=== PATIENT | male | born 2005 | race Asian ===

== ENCOUNTER 2023-07-06 23:45 | Emergency (ER) | payer BC ==
[2023-07-07 00:11] LABS: BILIRUBIN,URINE NEGATIVE (NEGATIVE); GLUCOSE, URINE (UA) NEGATIVE (NEGATIVE); KETONES,URINE (UA) NEGATIVE (NEGATIVE); LEUKOCYTE ESTERASE, URINE NEGATIVE (NEGATIVE); NITRITE,URINE NEGATIVE (NEGATIVE); OCCULT BLOOD,URINE NEGATIVE (NEGATIVE); PH,URINE 6.5 PH (5.0-7.5); PROTEIN,URINE TRACE mg/dL (NEGATIVE); UROBILINOGEN,URINE 0.2 (NORMAL) E.U./dL (NORMAL)
[2023-07-07 00:17] LABS: CLARITY,URINE CLEAR (CLEAR)
[2023-07-07] MEDS ORDERED: ONDANSETRON 4 MG/2 ML VIAL IVP STA (00:17)
[2023-07-07] MEDS ORDERED: FAMOTIDINE 20 MG/2 ML VIAL IVP STA (00:17)
[2023-07-07] MEDS ORDERED: SODIUM CHLORIDE 0.9% 1,000 ML IV STA (00:17)
[2023-07-07] MEDS ORDERED: KETOROLAC 30 MG/ML VIAL IVP STA (00:18)
[2023-07-07 00:28] LABS: BASOPHILS % (AUTO) 0.3 %; EOSINOPHILS # (AUTO) 0.1 10^3/uL (0.0-0.7); EOSINOPHILS % (AUTO) 0.6 %; HCT - HEMATOCRIT 48.3 % (42.0-52.0); HGB - HEMOGLOBIN 15.7 g/dL (14.0-18.0); LYMPHOCYTES # (AUTO) 1.3 10^3/uL (1.5-3.5); LYMPHOCYTES % (AUTO) 13.7 %; MEAN CORPUSCULAR HEMOGLOBIN 28.8 pg (27.0-31.0); MEAN CORPUSCULAR HGB CONC 32.5 g/dL (32.0-36.0); MEAN CORPUSCULAR VOLUME 88.6 fL (80.0-94.0); MEAN PLATELET VOLUME 9.5 fL (7.4-11.4); MONOCYTES # (AUTO) 0.3 10^3/uL (0.0-1.0); MONOCYTES % (AUTO) 3.1 %; NEUTROPHILS # (AUTO) 7.9 10^3/uL (1.5-6.6); PLT - PLATELET COUNT 300 10^3/uL (130-450); RED BLOOD COUNT 5.45 10^6/uL (4.70-6.10); RED CELL DISTRIBUTION WIDTH 12.4 % (12.0-15.0); WHITE BLOOD COUNT 9.6 x10^3/uL (4.8-10.8)
--- NOTE | 2023-07-07 00:38 | ED Physician Documentation ---
PD HPI ABD PAIN - Stated complaint Stated Complaint: NAUSEA/ABD PX - Chief complaint Chief Complaint: Abd Pain - History obtained from History obtained from: Patient - Additional information Additional information: Patient is a 17-year-old male presenting for evaluation of epigastric abdominal pain that is been present since this morning. Patient reports that it hurts more when he eats or drinks. He has had associated nausea and vomiting. Nothing makes it better. He denies history of prior abdominal surgeries. No drug or alcohol use. No fever. Had a cough last week but that resolved on . No chest pain or shortness of air. Denies dysuria. Had a bowel movement yesterday but today felt constipated and tried a suppository without any improvement. Review of Systems Constitutional: denies: Fever Cardiac: denies: Chest pain / pressure Respiratory: denies: Dyspnea GI: reports: Abdominal Pain, Nausea, Vomiting. denies: Diarrhea : denies: Dysuria Musculoskeletal: denies: Back pain Neurologic: denies: Headache PD PAST MEDICAL HISTORY - Present Medications Home Medications: Ambulatory Orders Medication Instructions Recorded Confirmed Ondansetron Odt [Zofran] 4 mg TL Q6H PRN #10 tablet 07/07/23 - Allergies Allergies/Adverse Reactions: Allergies Allergy/AdvReac Type Severity Reaction Status Date / Time No Known Drug Allergies Allergy Verified 07/06/23 23:57 PD ED PE NORMAL - General General: Alert and oriented X 3, No acute distress, Well developed/nourished - HEENT HEENT: Atraumatic, Moist mucous membranes, Pharynx benign - Neck Neck: Supple, no meningeal sign - Cardiac Cardiac: RRR, No murmur - Respiratory Respiratory: No respiratory distress, Clear bilaterally - Abdomen Abdomen: Normal bowel sounds, Soft, Non distended, Other (Mild epigastric and left upper quadrant tenderness to palpation, no tenderness to lower abdomen or RUQ) Results - Vitals Vitals: Vital Signs - 24 hr 07/06/23 07/07/23 07/07/23 23:49 00:48 02:00 Temperature 37.1 C Heart Rate 64 60 60 Respiratory 17 15 16 Rate Blood Pressure 133/81 H 136/66 H 121/67 O2 Saturation 100 99 98 07/07/23 02:22 Temperature Heart Rate 56 L Respiratory 16 Rate Blood Pressure O2 Saturation 98 Oxygen O2 Source Room air - Labs Labs: Laboratory Tests 07/06/23 07/07/23 07/07/23 23:59 00:12 00:12 WBC 9.6 RBC 5.45 Hgb 15.7 Hct 48.3 MCV 88.6 MCH 28.8 MCHC 32.5 RDW 12.4 Plt Count 300 MPV 9.5 Neut # (Auto) 7.9 H Lymph # (Auto) 1.3 L Clarke # (Auto) 0.3 Eos # (Auto) 0.1 Baso # (Auto) 0.0 Absolute Nucleated RBC 0.00 Nucleated RBC % 0.0 Sodium 137 Potassium 3.6 Chloride 102 Carbon Dioxide 25 Anion Gap 10.0 BUN 15 Creatinine 1.0 Estimated GFR (MDRD) 96 Glucose 110 H Calcium 9.6 Total Bilirubin 0.4 AST 15 ALT 25 Alkaline Phosphatase 68 Total Protein 7.4 Albumin 4.9 Globulin 2.5 Albumin/Globulin Ratio 2.0 Lipase 10 L Urine Color YELLOW Urine Clarity CLEAR Urine pH 6.5 Ur Specific Clay 1.025 Urine Protein TRACE Urine Glucose (UA) NEGATIVE Urine Ketones NEGATIVE Urine Occult Blood NEGATIVE Urine Nitrite NEGATIVE Urine Bilirubin NEGATIVE Urine Urobilinogen 0.2 (NORMAL) Ur Leukocyte Esterase NEGATIVE Ur Microscopic Review NOT INDICATED Urine Culture Comments NOT INDICATED PD Medical Decision Making - ED course Complexity details: reviewed results, re-evaluated patient, d/w patient, d/w family ED course: Patient is a 17-year-old male presenting for evaluation of epigastric abdominal pain with nausea and vomiting today. He has no lower abdominal tenderness on exam or right upper quadrant tenderness. Mild epigastric and left upper quadrant tenderness. Vital signs are stable. No chest pain or shortness of air. CBC and chemistries were obtained and reviewed and without significant findings. He is feeling better here with IV fluids, Zofran and a GI cocktail. At this time I do not feel that imaging would be particularly helpful given unremarkable labs and tenderness seems to be isolated to the epigastric region. No signs of cholecystitis or pancreatitis. Patient is tolerating p.o. here and was counseled on continued supportive care as well as concerning symptoms to return for. Departure - Departure Disposition: 01 Home, Self Care Clinical Impression: Epigastric abdominal pain, Nausea & vomiting Condition: Stable Instructions: ED Nausea Vomiting, ED Epigastric Pain [facility] Prescriptions: Ondansetron Odt [Zofran] 4 mg TL Q6H PRN #10 tablet PRN Reason: Nausea / Vomiting Comments: Your lab testing is reassuring without any significant findings and your symptoms have gotten better here with medications. I am sending a prescription for an antinausea medication to [facility] in [place]. Please start with a bland diet tomorrow and primarily focus on staying hydrated with fluids versus eating solid foods. If you have any worsening symptoms such as migration of your pain to the right lower part of your abdomen then please return to the emergency department. I would recommend follow-up with your primary care provider. Forms: PCP List Discharge Date/Time: 07/07/23 02:22
[2023-07-07 00:57] LABS: ALBUMIN 4.9 g/dL (3.2-5.5); BILIRUBIN,TOTAL 0.4 mg/dL (0.2-1.0); CALCIUM 9.6 mg/dL (8.5-10.3); POTASSIUM 3.6 mmol/L (3.5-4.5); TOTAL PROTEIN 7.4 g/dL (6.4-8.9)
[2023-07-07] MEDS ORDERED: LIDOCAINE VISCOUS 2% 15 ML UDC MM STA (01:27)
[2023-07-07] MEDS ORDERED: MAG HYDROX/AL HYDROX/SIMETH 30 ML UDC PO STA (01:27)
[2023-07-07] MEDS ORDERED: ONDANSETRON ODT 4 MG Prepack 2 TL PRN (02:06)
[2023-07-07 02:11] VITALS: BP 121/67; O2SAT 98
== END 2023-07-07 02:22 | disposition home or self-care (01) ==
LOC: ED 23:45
DX: R10.13 Epigastric pain (principal); R11.2 Nausea with vomiting, unspecified
CPT/HCPCS: 36415; 80053; 81001; 81003; 83690; 85025; 87086; 96374; 99283

== ENCOUNTER 2023-07-07 22:36 | Emergency (ER) | payer BC ==
[2023-07-07] MEDS ORDERED: MAG HYDROX/AL HYDROX/SIMETH 30 ML UDC PO STA (23:22)
[2023-07-07] MEDS ORDERED: diphenhydrAMINE ELIXIR 25 MG/10 ML UDC PO STA (23:23)
[2023-07-07] MEDS ORDERED: FAMOTIDINE 20 MG TABLET PO STA (23:23)
[2023-07-08 00:49] VITALS: BP 134/84; O2SAT 98
--- NOTE | 2023-07-08 01:02 | ED Physician Documentation ---
PD HPI ABD PAIN - Stated complaint Stated Complaint: ABD PX - Chief complaint Chief Complaint: Abd Pain - History obtained from History obtained from: Patient - Additional information Additional information: 17-year-old boy, previously healthy, presents with epigastric abdominal pain that occurs after eating for the past 2 days with associated constipation and bloating. Review of Systems Constitutional: denies: Fever, Chills Cardiac: denies: Chest pain / pressure Respiratory: denies: Dyspnea GI: reports: Nausea, Constipation. denies: Vomiting, Diarrhea, Bloody / black stool : denies: Dysuria, Frequency, Hesitancy, Hematuria Musculoskeletal: denies: Back pain PD PAST MEDICAL HISTORY - Past Medical History Past Medical History: No - Past Surgical History Past Surgical History: No - Present Medications Home Medications: Ambulatory Orders Medication Instructions Recorded Confirmed Ondansetron Odt [Zofran] 4 mg TL Q6H PRN #10 tablet 07/07/23 07/07/23 Famotidine [Pepcid] 20 mg PO BID PRN #20 tablet 07/08/23 - Allergies Allergies/Adverse Reactions: Allergies Allergy/AdvReac Type Severity Reaction Status Date / Time No Known Drug Allergies Allergy Verified 07/07/23 22:46 - Social History Does the pt smoke?: No Smoking Status: Never smoker Does the pt drink ETOH?: No Does the pt have substance abuse?: No - Immunizations Immunizations: TDAP >10years/unknown - POLST Patient has POLST: No PD ED PE NORMAL - Vitals Vital signs reviewed: Yes - General General: Alert and oriented X 3, No acute distress, Well developed/nourished - HEENT HEENT: Atraumatic, PERRL, EOMI - Neck Neck: Supple, no meningeal sign - Cardiac Cardiac: RRR - Respiratory Respiratory: No respiratory distress, Clear bilaterally - Abdomen Abdomen: Non tender, Non distended - Derm Derm: Normal color, Warm and dry - Neuro Neuro: Alert and oriented X 3 Results - Vitals Vitals: Vital Signs - 24 hr 07/07/23 07/08/23 07/08/23 22:38 00:29 00:44 Temperature 36.6 C 36.4 C L Heart Rate 57 L 57 L 57 L Respiratory 17 14 16 Rate Blood Pressure 133/77 H 140/85 H 134/84 H O2 Saturation 98 99 98 Oxygen O2 Source Room air PD Medical Decision Making - ED course ED course: 17-year-old boy, previously healthy presents with epigastric pain that has persisted since his ED visit yesterday. No right upper quadrant or right lower quadrant tenderness concerning for gallbladder or appendiceal pathology. Patient has nontender abdomen and benign symptoms, had improvement with GI cocktail with good p.o. intake in the ED. Symptomatic care discussed and return precautions given. Patient will follow-up with his primary care provider. GI referral provided. Departure - Departure Disposition: 01 Home, Self Care Clinical Impression: Abdominal pain Condition: Stable Instructions: Abdominal Pain Follow-Up: Debra Latham MD [Physician No Access] - Prescriptions: Famotidine [Pepcid] 20 mg PO BID PRN #20 tablet PRN Reason: Pain >8 Comments: You were seen in the emergency department for Abdominal pain. [id number] medications including Tums, Maalox, Gaviscon, Pepto-Bismol, and these may help to make your symptoms better. Electronic prescription for Pepcid was sent to your pharmacy. Please follow-up with your primary care provider and return to the emergency department if you have any new or worsening symptoms or other concerns.
== END 2023-07-08 01:09 | disposition home or self-care (01) ==
LOC: ED 22:36
DX: R10.13 Epigastric pain (principal)
CPT/HCPCS: 36415; 80053; 81003; 83690; 85025; 96374; 99282; 99283; A9270; 81001; 87086